=== PATIENT | male | born 1975 | race American Indian/Alaskan Native ===

== ENCOUNTER 2017-03-16 10:49 | Emergency (ER) | payer OTHER ==
--- NOTE | 2017-03-16 12:10 | Emergency Department Report ---
Entered by SAPPHIRE AHUMADA, acting as scribe for JACE EARL NP. Chief Complaint: Dizziness Stated Complaint: DIZZINESS Time Seen by Provider: 03/16/17 12:01 - HPI History of Present Illness: 41 year old male who is non-toxic, in no acute distress, not ill appearing presents with c/o dizziness x 4 days. Reports non-compliance with HTN Rx for 3 months. Denies VIZCAINO, vision changes, chest pain, SOB, abdominal pain, N/V/D. Denies EtOH, recreational drug use. Reports Hx of right ear infection 1 month ago but denies any symptoms at present. - ROS Review of Systems: Reports dizziness. Denies VIZCAINO, vision changes, chest pain, SOB, abdominal pain, N/V/D, EtOH and recreational drug abuse, ear pain, fever, chills. - Exam Vital Signs: Vital Signs 03/16/17 11:37 Temperature 98.2 F Pulse Rate 95 H Respiratory 18 Rate Blood Pressure 161/96 O2 Sat by Pulse 98 Oximetry Physical Exam: Constitutional: Non toxic appearing, NAD. ENT: Unable to visualize right TM due to cerumen impaction Cardiovascular: Normal rate and rhythm with normal S1/S2 sounds. Respiratory: No respiratory distress. Lung sounds clear to auscultation bilaterally. Neuro: CN II-IX grossly normal. MSE screening note: Focused history and physical exam performed. Due to findings the following was ordered:CBC, CMP, UA ED Disposition for MSE Condition: Stable This documentation as recorded by the scribe,SAPPHIRE AHUMADA,accurately reflects the service I personally performed and the decisions made by ,JACE EARL, RENATO.
[2017-03-16 12:23] LABS: Basophils % (Auto) 0.8 % (0.0-1.8); Eosinophils % (Auto) 3.2 % (0.0-4.3); Hemoglobin 13.6 gm/dl (11.8-15.2); Mean Corpuscular HGB Conc 32 % (32-34); Mean Corpuscular Volume 76 fl (84-94); Platelet Count 247 K/mm3 (140-440); Red Cell Distribution Width 17.6 % (13.2-15.2); White Blood Count 9.7 K/mm3 (4.5-11.0)
[2017-03-16 12:25] LABS: Mean Corpuscular Hemoglobin 25 pg (28-32)
[2017-03-16 12:41] LABS: Alanine Aminotransferase 25 units/L (7-56); Albumin 4.3 g/dL (3.9-5); Albumin/Globulin Ratio 1.2 %; Alkaline Phosphatase 75 units/L (35-129); Anion Gap 16 mmol/L; BUN/Creatinine Ratio 17.27; Blood Urea Nitrogen 19 mg/dL (9-20); Calcium 9.7 mg/dL (8.4-10.2); Carbon Dioxide 27 mmol/L (22-30); Chloride 102.4 mmol/L (98-107); Glucose 93 mg/dL (75-100); Potassium 4.2 mmol/L (3.6-5.0); Sodium 141 mmol/L (137-145); Total Protein 7.9 g/dL (6.3-8.2)
[2017-03-16] MEDS ORDERED: ANTIVERT PO ONE (17:26)
--- NOTE | 2017-03-16 17:37 | Emergency Department Report ---
HPI - General Chief Complaint: Dizziness Time Seen by Provider: 03/16/17 17:20 - HPI HPI: Room 4 The patient is a 41-year-old male presenting with a chief complaint of dizziness. The patient states his symptoms began 3 days ago while he was at home. The patient states he stood up from a sitting position and he began to feel dizzy. The patient states she sat down and symptoms improved. Patient states last night while driving he reached over to cone picker a bottle floor when he sat up again began to feel as though. The patient states the dizziness lasted approximately 2-3 hours. Patient denied any preceding headache chest pain or shortness of breath. 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 Patient now complains of slight dizziness Location: Head Duration: Intermittent 3 days Quality: Vertigo Severity: Moderate Modifying factors: [see above] Context: [see above] Mode of transportation: [not driving] ED Past Medical Hx - Past Medical History Previous Medical History?: Yes Hx Hypertension: Yes Hx Heart Attack/AMI: Yes Hx Diabetes: Yes (borderline. No meds) - Surgical History Past Surgical History?: Yes Hx Coronary Stent: Yes Additional Surgical History: Back surgery, Cervical spine surgery - Family History Family history: no significant - Social History Smoking Status: Never Smoker Substance Use Type: Alcohol (occasional) - Medications Home Medications: Home Medications Medication Instructions Recorded Confirmed Last Taken Type No Known Home Medications [No 03/16/17 03/16/17 Unknown History Reported Home Medications] ED Review of Systems ROS: Stated complaint: DIZZINESS Other details as noted in HPI Comment: All other systems reviewed and negative Constitutional: denies: chills, fever Eyes: denies: eye pain, eye discharge, vision change ENT: denies: ear pain, throat pain Respiratory: denies: cough, shortness of breath, wheezing Cardiovascular: denies: chest pain, palpitations Endocrine: no symptoms reported Gastrointestinal: denies: abdominal pain, nausea, diarrhea Genitourinary: denies: urgency, dysuria Musculoskeletal: denies: back pain, joint swelling, arthralgia Skin: denies: rash, lesions Neurological: vertigo. denies: headache Psychiatric: denies: anxiety, depression Hematological/Lymphatic: denies: easy bleeding, easy bruising Physical Exam - Physical Exam Vital Signs: Vital Signs 03/16/17 11:37 Temperature 98.2 F Pulse Rate 95 H Respiratory 18 Rate Blood Pressure 161/96 O2 Sat by Pulse 98 Oximetry Physical Exam: GENERAL: The patient is well-developed well-nourished male sitting on stretcher not appearing to be in acute distress. [] HEENT: Normocephalic. Atraumatic. Extraocular motions are intact. Patient has moist mucous membranes. No nystagmus NECK: Supple. No meningitic signs are noted. Trachea midline CHEST/LUNGS: Clear to auscultation. There is no respiratory distress noted. HEART/CARDIOVASCULAR: Regular. There is no tachycardia. There is no gallop rub or murmur. ABDOMEN: Abdomen is soft, nontender. Patient has normal bowel sounds. There is no abdominal distention. SKIN: There is no rash. There is no edema. There is no diaphoresis. NEURO: The patient is awake, alert, and oriented. The patient is cooperative. The patient has no focal neurologic deficits. The patient has normal speech. Cranial nerves II through XII grossly intact, no drift MUSCULOSKELETAL: There is no evidence of acute injury. ED Course Vital Signs 03/16/17 11:37 Temperature 98.2 F Pulse Rate 95 H Respiratory 18 Rate Blood Pressure 161/96 O2 Sat by Pulse 98 Oximetry ED Medical Decision Making - Lab Data Result diagrams: 03/16/17 12:07 03/16/17 12:07 Laboratory Tests 03/16/17 03/16/17 03/16/17 12:07 12:07 17:49 WBC 9.7 RBC 5.50 H Hgb 13.6 Hct 42.0 MCV 76 L MCH 25 L MCHC 32 RDW 17.6 H Plt Count 247 Lymph % (Auto) 20.9 Newton % (Auto) 5.0 Eos % (Auto) 3.2 Baso % (Auto) 0.8 Lymph # 2.0 Newton # 0.5 Eos # 0.3 Baso # 0.1 Seg Neutrophils % 70.1 H Seg Neutrophils # 6.8 D-Dimer 366.93 H Sodium 141 Potassium 4.2 Chloride 102.4 Carbon Dioxide 27 Anion Gap 16 BUN 19 Creatinine 1.1 Estimated GFR > 60 BUN/Creatinine Ratio 17.27 Glucose 93 Calcium 9.7 Total Bilirubin 0.30 AST 38 ALT 25 Alkaline Phosphatase 75 Total Protein 7.9 Albumin 4.3 Albumin/Globulin Ratio 1.2 Laboratory Tests 0503/16/17 03/16/17 12:07 12:07 17:49 WBC 9.7 RBC 5.50 H Hgb 13.6 Hct 42.0 MCV 76 L MCH 25 L MCHC 32 RDW 17.6 H Plt Count 247 Lymph % (Auto) 20.9 Newton % (Auto) 5.0 Eos % (Auto) 3.2 Baso % (Auto) 0.8 Lymph # 2.0 Newton # 0.5 Eos # 0.3 Baso # 0.1 Seg Neutrophils % 70.1 H Seg Neutrophils # 6.8 D-Dimer 366.93 H Sodium 141 Potassium 4.2 Chloride 102.4 Carbon Dioxide 27 Anion Gap 16 BUN 19 Creatinine 1.1 Estimated GFR > 60 BUN/Creatinine Ratio 17.27 Glucose 93 Calcium 9.7 Total Bilirubin 0.30 AST 38 ALT 25 Alkaline Phosphatase 75 Total Creatine Kinase Troponin T Total Protein 7.9 Albumin 4.3 Albumin/Globulin Ratio 1.2 03/16/17 17:49 WBC RBC Hgb Hct MCV MCH MCHC RDW Plt Count Lymph % (Auto) Newton % (Auto) Eos % (Auto) Baso % (Auto) Lymph # Newton # Eos # Baso # Seg Neutrophils % Seg Neutrophils # D-Dimer Sodium Potassium Chloride Carbon Dioxide Anion Gap BUN Creatinine Estimated GFR BUN/Creatinine Ratio Glucose Calcium Total Bilirubin AST ALT Alkaline Phosphatase Total Creatine Kinase 1181 H Troponin T 0.013 Total Protein Albumin Albumin/Globulin Ratio - EKG Data -: EKG Interpreted by Ct EKG shows normal: sinus rhythm Rate: normal - EKG Data When compared to previous EKG there are: previous EKG unavailable Interpretation: other (no ischemic changes seen) - Radiology Data Radiology results: report reviewed (CT head), image reviewed (CT head) DT had (read by radiologist)-no intracranial abnormalities seen. Mild changes of chronic sinusitis are seen. - Differential Diagnosis vertigo, PE, dehydration Critical care attestation.: If time is entered above; I have spent that time in minutes in the direct care of this critically ill patient, excluding procedure time. ED Disposition Clinical Impression: Vertigo, Rhabdomyolysis Disposition: OP ADMITTED IP TO THIS HOSP Is pt being admited?: Yes Does the pt Need Aspirin: Yes Condition: Fair Referrals: PRIMARY CARE, [Primary Care Provider] - 3-5 Days Time of Disposition: 19:26 (Dr Swift notified. CT chest pending)
--- NOTE | 2017-03-16 17:54 | Cat Scan Report ---
FINAL REPORT PROCEDURE: CT HEAD/BRAIN WO CON TECHNIQUE: Computerized tomography of the head was performed without contrast material. HISTORY: dizziness COMPARISON: No prior studies are available for comparison. FINDINGS: Mild changes of chronic sinusitis are seen. Middle ears and mastoid air cells appear clear of fluid. No calvarial fracture is seen. The cerebral ventricles are normal in size. No acute intracranial hemorrhage or mass effect is seen. No CVA is seen. IMPRESSION: Mild changes of chronic sinusitis are seen. No intracranial abnormality is seen.
[2017-03-16] MEDS ORDERED: NACL 0.9% 1000 ML 1,000 ML IV ONE (18:33)
--- NOTE | 2017-03-16 18:44 | Admit Criteria Form ---
Admission Criteria Documentation: MUSCULOSKELETAL DISEASE GRG Clinical Indications for Admission to Inpatient Care (Place 'X' for any and all applicable criteria): Hospital admission is needed for appropriate care of the patient because of 1 or more of the following: [ ]I. Fracture, dislocation, or other musculoskeletal injury requiring inpatient care(medical) as indicated by 1 or more of the following(4)(5)(6)(7) [ ]a) Vertebral fracture requiring observation for instability or neurologic compromise (8) [ ]b) Compartment syndrome (proven or cannot be ruled out during observation level of care) (9) [ ]c) Limb-threatening injury [ ]d) Major injury requiring inpatient stabilization such as traction initiation or external fixation before internal fixation or closure of complex or open fracture [ ]e) Major injury requiring inpatient treatment after emergency or observation level care (as appropriate) [ ]f) Severe pain requiring acute inpatient management [ ]g) Injury with suspicion of abuse or neglect (eg., child, dependent elderly) [ ]II. Newly diagnosed or suspected bone, joint, or orthopedic device infection (e.g., osteomyelitis, septic arthritis) needing 1 or more of the following(1)(2)(3) [ ]a) IV antibiotics that cannot be initiated in other than inpatient setting (e.g., patient too unstable or home infusion not available) [ ]b) Device removal or replacement [ ]c) Bone or soft tissue debridement [ ]d) Joint drainage (drain placement or repetitive aspirations) [ ]III. Severe rheumatologic disease (e.g., systemic lupus erythematosus, rheumatoid arthritis) with complications or comorbidities (Also use Optimal Recovery Care Criteria or General Recovery Criteria as appropriate on the basis of predominant condition), including 1 or more of the following( 10)(11)(12)(13) [ ]a) Severe infection (e.g., ACOUSTICAL ENGINEER infection, sepsis) (14) [ ]b) Respiratory complications, including 1 or more of the following : [ ]i) Pleural effusion with respiratory compromise [ ]ii) Pulmonary hypertension with congestive failure [ ]iii) Respiratory failure [ ]iv) Pulmonary hemorrhage (15) [ ]c) Hematologic disease, including 1 or more of the following: [ ]i) Coagulopathy with bleeding [ ]ii) Thrombosis with hypercoagulable state [ ]iii) Thrombotic thrombocytopenic purpura [ ]d) Cerebritis with seizures, psychosis, or other severe abnormalities [ ]e) Vertebral destruction with monitoring needed for cervical myelopathy& possible respiratory compromise [ ]f) Exacerbation that requires inpatient treatment (e.g., intravenous immunosuppression) (16) [ ]g) Acute renal failure [ ]h) Cerebritis with seizures, psychosis, Altered mental status, or other neurologic abnormalities [ ]i) Pericardial effusion with tamponade [ ]j) Vertebral destruction, with monitoring needed for cervical myelopathy and possible respiratory compromise [ ]IV. Severe vasculitis with complications or comorbidities (Also use Optimal Recovery Care Criteria General Recovery Criteria as appropriate on the basis of predominant condition), including 1 or more of the following(11)(12)(17)(18)(19)(20) [ ]a) Exacerbation that requires inpatient treatment (e.g., intravenous immunosuppression) (19)(21) [ ]b) Pulmonary hemorrhage (15) [ ]c) ACOUSTICAL ENGINEER vasculitis with seizures, psychosis, Altered mental status that is severe or persistent, or other severe abnormalities (22) [ ]d) Cerebral infarction [ ]e) Gastrointestinal ischemia [ ]f) Gangrene or threatened amputation [ ]g) Renal failure (16) [ ]h) Other significant complications of vasculitis ( eg., tissue or organ ischemia, organ dysfunction ) [ ]V. Severe myopathy as indicated by 1 or more of the following (28)(29) [ ]a) New onset of airway compromise or inability to swallow [ ]b) Respiratory deterioration with observation needed for impending respiratory failure [ ]c) Exacerbation that requires inpatient treatment (e.g., intravenous immunosuppression) [ ]. Severe crystal gout (arthropathy) indicated by 1 or more of the following (23)(24) [ ]a) Severe pain requiring acute inpatient management [ ]b) Exacerbation that requires inpatient treatment (e.g., intravenous treatment) [ X]VII.Rhabdomyolysis and 1 or more of the following (25)(26)(27) [ ]a) Acute renal failure [X ]b) Need for intravenous hydration after emergency or observation level care (as appropriate) [ ]c) Inability to maintain oral hydration [ ]d) Change in mental status [ ]e) Electrolyte abnormality that remains after emergency or observation level care (as appropriate) [ ]VIII Post amputation complication, as indicated by ANY ONE of the following [ ]a) Infection [ ]b) Dehiscence [ ]c) Myodesis failure [ ]IX. Severe pain requiring acute inpatient management due to musculoskeletal condition [ ]X. Musculoskeletal Disease and ALL of the following: [ ]a) Symptom or finding for which emergency and observation care have failed or are not considered appropriate (Use General Criteria: Observation Care as appropriate) [ ]b) Presence of ANY ONE of the following [ ]i) A General Admission Criteria [ ]ii) A Pediatric General Admission Criteria The original [facility] content created by [facility] [employer] has been revised. The portions of the content which have been revised are identified through the use of italic text or in bold, and [facility] has neither reviewed nor approved the modified material. All other unmodified content is copyright [facility] [employer]. Please see references footnoted in the original [facility] edition 2016 Admission Criteria Met: Yes
[2017-03-16] MEDS ORDERED: NORCO 5/325 PO ONE (19:09)
[2017-03-16] MEDS ORDERED: BENADRYL IV ONE (19:24)
[2017-03-16 19:55] LABS: Creatine Kinase MB 6.1 ng/mL (0.0-4.0)
--- NOTE | 2017-03-16 20:32 | Event Note ---
Date: 03/16/17 Patient seen and evaluated. 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 No focal deficits.Labs and imaging studies reviewed. CTA negative Labs CPK ~1100. Dx Vertigo/:Acute Labrynthitis Mild Rhabdo D/c on fluid intake and meclizine F/u with PCP
[2017-03-16 20:39] LABS: Bilirubin,Urine NEG (Negative); Blood,Urine NEG (Negative); Ketones,Urine NEG (Negative); Leukocyte Esterase,Urine NEG (Negative); Mucus,Urine FEW /HPF; Nitrite,Urine NEG (Negative); Protein,Urine <15 mg/dL mg/dL (Negative); Urobilinogen,Urine < 2.0 mg/dL (<2.0)
--- NOTE | 2017-03-16 20:52 | Cat Scan Report ---
FINAL REPORT PROCEDURE: CT ANGIO CHEST TECHNIQUE: Computerized tomographic angiography of the chest was performed after the IV injection of iodinated nonionic contrast including image processing. The image data was postprocessed using 2-dimensional multiplanar reformatted (MPR) and 3-dimensional (MIP and/or volume rendered) techniques. HISTORY: dizziness, ELEVATED DIMER COMPARISON: No prior studies are available for comparison. FINDINGS: There is likely mild cardiomegaly without pulmonary venous congestion. Mild hypoventilatory changes are seen in the lower lungs. Minimal pulmonary edema in the lower lungs is not excluded. No pneumothorax or pleural effusion is seen. Benign cysts are seen in the left kidney. There is no mediastinal lymphadenopathy. The thoracic aorta is normal in size without evidence of dissection. Unfortunately, timing of contrast in the pulmonary arteries is suboptimal. Distal pulmonary artery branches are not well visualized but no large proximal pulmonary embolus is seen. IMPRESSION: Study is limited in evaluation of the distal pulmonary arteries but no large proximal pulmonary embolus is seen. Cardiomegaly is seen and very mild pulmonary edema is not excluded.
[2017-03-16 21:11] VITALS: BP 148/95
== END 2017-03-16 21:20 | disposition admitted as inpatient to this hospital (09) ==
LOC: ED 10:49
DX: R42 Dizziness and giddiness (principal); M62.82 Rhabdomyolysis; I10 Essential (primary) hypertension; I25.2 Old myocardial infarction; E11.9 Type 2 diabetes mellitus without complications; Z95.818 Presence of other cardiac implants and grafts; Z91.013 Allergy to seafood
CPT/HCPCS: 36415; 70450; 71275; 80053; 81001; 82550; 82553; 84484; 85025; 85379; 93005; 93010; 96361; 96374; 99285; J1200; J7030; Q9967

== ENCOUNTER 2017-06-25 14:01 | Outpatient (CLI) | payer OTHER ==
--- NOTE | 2017-06-26 11:15 | Vascular Lab Report ---
Right Lower Extremity Venous Duplex Study: Reason for Exam: Swelling of the right lower extremity. Comments on the Right: All veins visualized are freely compressible without evidence of internal echogenicity. Flow is spontaneous and phasic throughout. No evidence of acute or chronic thrombus is seen in any of the vessels visualized. 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 Comments on the Left: A limited duplex study was done of the proximal veins of the left lower extremity. All veins visualized are freely compressible without evidence of internal echogenicity. Flow is spontaneous and phasic throughout. No evidence of acute or chronic thrombus is seen in any of the vessels visualized. Impression: No evidence of acute or chronic deep venous thrombosis in the right lower extremity.
== END 2017-06-25 14:02 | disposition home or self-care (01) ==
LOC: VAS 14:01
PROVIDERS: ATTEND Internal Medicine
DX: M79.89 Other specified soft tissue disorders (principal); I11.0 Hypertensive heart disease with heart failure; I50.9 Heart failure, unspecified; E11.9 Type 2 diabetes mellitus without complications; I25.10 Atherosclerotic heart disease of native coronary artery without angina pectoris; Z87.891 Personal history of nicotine dependence